=== PATIENT | female | born 1945 | race Caucasian/White ===

== ENCOUNTER 2018-03-02 20:56 | Emergency (ER) | payer MEDICARE, OTHER ==
[~2018-03-02] VITALS: Ht 162.6 cm; Wt 145.6 kg
[2018-03-02] MEDS ORDERED: GABA100 (21:09)
[2018-03-02] MEDS ORDERED: SIMV10 PO (21:09)
[2018-03-02] MEDS ORDERED: PANT40 PO (21:10)
[2018-03-02] MEDS ORDERED: ASPI81CH PO (21:10)
[2018-03-02] MEDS ORDERED: ATEN50 PO (21:10)
[2018-03-02] MEDS ORDERED: METF850 PO (21:10)
[2018-03-02] MEDS ORDERED: LOSA50 (21:10)
[2018-03-02] MEDS ORDERED: DIPATRL (21:11)
[2018-03-02] MEDS ORDERED: DOC250 PO (21:11)
[2018-03-02] MEDS ORDERED: Ferrous Sulfat325 M2 PO (21:12)
[2018-03-02] MEDS ORDERED: CITA20 PO (21:13)
[2018-03-02] MEDS ORDERED: Ranitidine HCl300 MG (21:13)
[2018-03-02] MEDS ORDERED: GLIP5ER PO (21:13)
[2018-03-02] MEDS ORDERED: LEVSOD50 PO (21:14)
[2018-03-02] MEDS ORDERED: HYDR1TAB94 PO (21:15)
== END 2018-03-02 22:29 | disposition home or self-care (01) ==
LOC: ER 20:56
DX: S01.81XA Laceration without foreign body of other part of head, initial encounter (principal); S00.83XA Contusion of other part of head, initial encounter; W01.198A Fall on same level from slipping, tripping and stumbling with subsequent striking against other object, initial encounter; Z79.899 Other long term (current) drug therapy; Z79.84 Long term (current) use of oral hypoglycemic drugs; Z79.82 Long term (current) use of aspirin; E11.9 Type 2 diabetes mellitus without complications; K21.9 Gastro-esophageal reflux disease without esophagitis
CPT/HCPCS: 70450; 72125